=== PATIENT | female | born 1965 | race Two or more races ===

== ENCOUNTER → 2023-10-05 19:20 | Outpatient (REF) | payer OTHER, SELFPAY | LOC: MRI 19:20 | PROVIDERS: ATTENDING PHYSICIAN Family Medicine | DX: M54.16 Radiculopathy, lumbar region (principal) | CPT/HCPCS: 72148 ==

== ENCOUNTER 2024-08-16 13:23 | Emergency (ER) | payer OTHER, SELFPAY ==
[2024-08-16 13:24] VITALS: BP 153/91
[2024-08-16 13:58] LABS: % Eosinophils 0.9 % (0-6); % Immature Granulocytes 0.5 % (0-0.5); % Lymphocytes 25.6 % (20.5-51.1); % Monocytes 5.1 % (1.7-9.3); % Neutrophils 66.9 % (42.2-75.2); Absolute Basophils 0.1 10^3/uL (0-0.2); Absolute Eosinophils 0.1 10^3/uL (0-0.7); Absolute Immature Granulocytes 0.1 10^3/uL (0-0.05); Absolute Lymphocytes 2.9 10^3/uL (1.2-3.4); Absolute Monocytes 0.6 10^3/uL (0.1-0.6); Absolute Neutrophils 7.6 10^3/uL (1.4-6.5); Hematocrit 43.2 % (37.0-47.0); Mean Corp Hgb Conc. 34.7 g/dL (33.0-37.0); Mean Corpuscular Hgb 31.1 pg (27.0-31.0); Mean Corpuscular Volume 89.6 fL (81.0-99.0); Nucleated Red Blood Cells % 0 %; Platelet Count 314 10^3/uL (130-400); Red Blood Cell Count 4.82 10^6/uL (4.20-5.40); Red Cell Dist. Width 12.5 % (11.5-14.5); White Blood Cell Count 11.3 10^3/uL (4.8-10.8)
[2024-08-16 14:14] LABS: ALT (SGPT) 30 U/L (0-35); AST (SGOT) 28 U/L (14-36); Albumin 4.2 g/dl (3.5-5.0); Alkaline Phosphatase 104 U/L (38-126); Blood Urea Nitrogen 13 mg/dl (7-17); Calcium 10.2 mg/dl (8.4-10.2); Carbon Dioxide 26 mmol/L (22-30); Chloride 105 mmol/L (98-107); Glucose 101 mg/dl (70-99); Sodium 139 mmol/L (135-145); Total Bilirubin 0.5 mg/dl (0.2-1.3); Total Protein 6.8 g/dl (6.3-8.2); eGFR > 60.00
[2024-08-16 14:18] LABS: NT-proBNP < 20.0 pg/ml
[2024-08-16 14:23] VITALS: BP 149/87
[2024-08-16 15:00] VITALS: BP 151/82
--- NOTE | 2024-08-16 15:05 | ED.GENMED ---
History of Present Illness
General
Chief Complaint: Dizziness
Source: patient
Exam Limitations: none
Time Seen by Provider: 08/16/24 14:45
History of Present Illness
History of Present Illness:
58yoF with a history of hypertension, anxiety, and depression presenting with her for evaluation after an episode of dizziness. Patient was driving back to her work this afternoon and she was feeling unwell with some abdominal cramping.
She initially thought she had an IBS flare. She went to the bathroom and was able to have a small bowel movement. After getting out of the bathroom, she suddenly became lightheaded and had a throbbing sensation in her jaw which felt like her blood
pressure was elevated. She was also feeling short of breath. Her coworker checked her blood pressure which was 117/92. The episode lasted about 30 minutes before improving. She currently feels much better but does not feel 100% back to normal.
She denies any chest pain or palpitations.
Phy Exam
General Physical Exam
General Presentation: well appearing and no apparent distress
General age: appears stated age
General Skin: warm and dry
General Habitus: normal
General Mental: alert
ENT Exam
ENT Exam: normocephalic
Cardiovascular Exam
Cardiovascular Exam: regular rate/rhythm, no edema and no murmur
Pulmonary Exam
Pulmonary Exam: lungs clear, no respiratory distress, no rales, no crackles, no rhonchi and no wheezing
Neurological Exam
Neurological Exam: alert
[place] Coma Scale
Eye Opening: Spontaneous
Verbal Response: Oriented
Motor Response: Obeys Commands
GCS Total Score: 15
Skin Exam
Skin Exam: normal color and warm/dry
Psychiatric Exam
Psychiatric Exam: normal mood/affect
Course
Orders/Labs/Results
Orders:
Orders
08/16/24 13:28
EKG [Electrocardiogram (*1)] Urgent
Reason for Study: Vertigo / Dizzy
EKG- Treatment ONCE
08/16/24 13:37
BNP [NT-proBNP] Urgent
Complete Blood Count/With Diff Urgent
Comprehensive Metabolic Panel Urgent
08/16/24 15:03
Cardiac Monitoring- Treatment ONCE
08/16/24 15:04
0.9% Sodium Chloride 500 ml [Nss] 500 ml IV BOLUS
CR Chest - 2 Views Urgent
Comment:
Reason For Exam: SOB
08/16/24 15:21
D-Dimer Urgent
Troponin I Urgent
08/16/24 15:57
CT Chest PE Study Urgent
Comment:
Reason For Exam: SOB, elevated D-dimer
08/16/24 17:24
Electrocardiogram (*1) Urgent
Reason for Study: Shortness of Breath
EKG- Treatment ONCE
08/16/24 17:37
Troponin I Urgent
Abnormal Lab Results
08/16/24 08/16/24
13:37 15:21
WBC 11.3 H 10^3/uL
(4.8-10.8)
MCH 31.1 H pg
(27.0-31.0)
MPV 11.0 H fL
(7.4-10.4)
Abs Immat Gran (auto) 0.1 H 10^3/uL
(0-0.05)
Absolute Neuts (auto) 7.6 H 10^3/uL
(1.4-6.5)
D-Dimer 1.03 H ug/mlFEU
(0.00-0.50)
Glucose 101 H mg/dl
(70-99)
08/16/24 13:37
08/16/24 13:37
Vital Signs
Initial and Last Documented VS:
Initial Vital Signs
Temp Pulse Resp BP Pulse Ox
97.6 F 97 18 153/91 99
08/16/24 13:24 08/16/24 13:24 08/16/24 13:24 08/16/24 13:24 08/16/24 13:24
Last Documented Vital Signs
Temp Pulse Resp BP Pulse Ox
97.6 F 81 24 132/64 95
08/16/24 13:24 08/16/24 18:15 08/16/24 18:15 08/16/24 18:00 08/16/24 18:15
MDM/Problems Addressed
Differential Diagnosis Includes:
58yoF here after an episode of dizziness. [place] lightheaded, throbbing in jaw, and SOB. Lasted 30 minutes. Symptoms now mostly resolved. No associated CP, palpitations, syncope. She is mildly hypertensive with otherwise stable vitals. She is well
appearing in no distress. Exam is reassuring. Differential diagnosis includes but is not limited to: ACS, arrhythmia, PE, orthostasis, dehydration
Initial ED plan: Basic labs obtained in triage. WBC 11.3 which is nonspecific. Electrolytes, renal function, glucose normal. EKG shows NSR without ischemic changes or ectopy. Will check troponin, D-dimer, and CXR. IV fluid bolus.
*EKG
Interpreted by ED Provider?: Yes
EKG Intrepretation Date: 08/16/24
Heart Rate: 77
Rate: normal
Rhythm: sinus
[place]: normal axis
Interval: normal interval
QRS Pattern: normal QRS
Ischemia: no ischemia
*Critical Care Note
Total Time (30-74mins, 75-104mins- exclusive of procedures): Not Applicable
Update Note
Update Note:
Troponin within normal limits. D-dimer elevated and CTA chest subsequently ordered. CT is negative for PE. Imaging does reveal several incidental findings including an adrenal lesion and lung nodule which patient was notified of. There is a cystic
structure in the posterior mediastinum. Patient is aware of this and was previously diagnosed with a bronchial cyst. She was given a copy of the radiology report. Repeat troponin/EKG unchanged. No telemetry events throughout ED stay. She is
asymptomatic on reassessment. No indication for hospitalization. She was advised to f/u with her PCP and ED return precautions discussed. Patient in agreement with plan and was discharged in stable condition.
ED Attending Note
-
Portions of this chart may have been created with voice recognition software.� Occasional wrong word or��sound alike� substitutions may have occurred due to the inherent limitations of voice recognition software.
Discharge Plan
Departure
Patient Disposition: Home (Routine Discharge)
Date of Disposition: 08/16/24
Time of Disposition: 18:29
Patient with high blood pressure during this ER visit?: Yes
Discharge Problem:
Episode of dizziness, Adrenal nodule, Lung nodule
Instructions: Dizziness
Referrals:
Jessica Vang MD [Family Provider] -
Activity Restrictions/Additional Instructions:
Please call tomorrow to schedule a follow-up with your family doctor. You will need an MRI for further evaluation of the lesion seen on your adrenal gland.
Return to the ER with any new or worsening symptoms.
Interventions
Interventions:
*Risk Screen - Suicide Last Done: 08/16/24 13:24
*General Assessment Last Done: 08/16/24 13:24
*Neglect/Abuse Screening Last Done: 08/16/24 13:24
*ED COVID-19 Vaccine History Last Done: 08/16/24 13:24
*Nursing Disposition Last Done: 08/16/24 18:46
ED- Neurological Assessment Last Done: 08/16/24 17:51
ED- Cardiac Assessment Last Done: 08/16/24 17:51
Discharge Date and Time
Discharge Date/Time: 08/16/24 18:47
Print Language: CANADIAN
[2024-08-16] MEDS: NSS 500 IV (15:21)
[2024-08-16 15:39] LABS: D-Dimer 1.03 ug/mlFEU (0.00-0.50)
[2024-08-16 15:50] LABS: Troponin I 0.016 ng/ml
[2024-08-16 16:05] VITALS: BP 146/76
[2024-08-16 17:30] VITALS: BP 147/77
[2024-08-16 18:00] VITALS: BP 132/64
[2024-08-16 18:08] LABS: Troponin I 0.013 ng/ml
== END 2024-08-16 18:47 | disposition home or self-care (01) ==
LOC: EMR 13:23
PROVIDERS: Physician Assistant; Student in an Organized Health Care Education/Training Program; EMERGENCY PHYSICIAN Student in an Organized Health Care Education/Training Program; FAMILY PHYSICIAN Family Medicine
DX: R42 Dizziness and giddiness (principal); R91.8 Other nonspecific abnormal finding of lung field; F41.8 Other specified anxiety disorders; I10 Essential (primary) hypertension
CPT/HCPCS: 99284; 96360; 71046; 71275; 80053; 83880; 84484; 85025; 85379; 93005; Q9967